=== PATIENT | male | born 1975 | race Caucasian/White ===

== ENCOUNTER 2019-09-07 13:49 | Emergency (ER) | payer MEDICAID, OTHER ==
[~2019-09-07] VITALS: Ht 188 cm; Wt 108.9 kg
--- NOTE | 2019-09-07 13:50 | NUR ---
Patient to ER bed 07 to gown for evaluation. Side rails up.
--- NOTE | 2019-09-07 13:52 | NUR ---
Pt brought by self, A&Ox4, pt presents to ER wit R foot pain and swelling, states he stepped in a piece of wood and possible foreign object on R foot, no bleeding, cap refill <3, afebrile .
--- NOTE | 2019-09-07 13:55 | NUR ---
Dr Carcamo at bedside examining patient
[2019-09-07 14:02] VITALS: BP_SYST 121
--- NOTE | 2019-09-07 14:40 | NUR ---
Patient given written and verbal discharge instructions and verbalizes understanding. ER MD discussed with patient the results and treatment provided. Patient in stable condition. ID arm band removed. Rx of keflex, bactrim and Motrin given. Patient educated on pain management and to follow up with PMD. Pain Scale 2/10 tolerable for patient. Opportunity for questions provided and answered. Medication side effect fact sheet provided.
== END 2019-09-07 14:40 | disposition home or self-care (01) ==
LOC: SED 13:49
DX: L03.115 Cellulitis of right lower limb (principal)
CPT/HCPCS: 99283

== ENCOUNTER 2021-08-07 05:34 | Emergency (ER) | payer OTHER, MEDICAID ==
[~2021-08-07] VITALS: Ht 188 cm; Wt 122.5 kg
[2021-08-07 05:57] VITALS: BP_SYST 122
--- NOTE | 2021-08-07 06:00 | NUR ---
Pt placed in ED bed 6.
--- NOTE | 2021-08-07 06:02 | NUR ---
First contact at this time. Pt placed on monitor.
--- NOTE | 2021-08-07 06:18 | NUR ---
Dr. Velazquez present in room at this time.
[2021-08-07] MEDS ORDERED: LIDOCAINE 1%, 20 ML MDV 20 ML ONE (06:26)
[2021-08-07] MEDS ORDERED: LIDOCAINE 1% 10 MG/ML, 20 ML MDV IM ONE (06:30)
[2021-08-07 07:05] VITALS: BP_SYST 121
--- NOTE | 2021-08-07 07:10 | NUR ---
Patient given written and verbal discharge instructions and verbalizes understanding. ER MD discussed with patient the results and treatment provided. Patient in stable condition. ID arm band removed. Patient educated on pain management and to follow up with PMD. Pain Scale . Opportunity for questions provided and answered. Medication side effect fact sheet provided.
== END 2021-08-07 07:10 | disposition home or self-care (01) ==
LOC: SED 05:34
DX: L02.212 Cutaneous abscess of back [any part, except buttock and flank] (principal); L03.90 Cellulitis, unspecified; R11.10 Vomiting, unspecified
CPT/HCPCS: 10060; 99284; J2001; 96372; 99283